=== PATIENT | female | born 1990 | race Caucasian/White ===

== ENCOUNTER 2016-09-10 15:39 | Emergency (ER) | payer OTHER ==
[2016-09-10 16:34] LABS: HCG,QUALITATIVE URINE NEGATIVE
[2016-09-10 16:37] LABS: SPECIFIC GRAVITY 1.015 (1.001-1.030); URINE BILIRUBIN NEGATIVE (NEGATIVE); URINE BLOOD 3+ (NEGATIVE); URINE GLUCOSE (UA) NEGATIVE (NEGATIVE); URINE LEUKOCYTE ESTERASE NEGATIVE (NEGATIVE); URINE NITRITE NEGATIVE (NEGATIVE); URINE PROTEIN NEGATIVE (NEGATIVE); URINE UROBILINOGEN NORMAL (0-1 mg/dl)
[2016-09-10 16:38] LABS: URINE APPEARANCE CLEAR; URINE COLOR YELLOW
[2016-09-10 16:46] LABS: URINE BACTERIA FEW; URINE EPITHELIAL CELLS MODERATE /hpf; URINE RBC 40-50 /hpf; URINE WBC 0-1 /hpf
== END 2016-09-10 17:06 | disposition home or self-care (01) ==
LOC: ED 15:39
DX: N93.9 Abnormal uterine and vaginal bleeding, unspecified (principal); F17.210 Nicotine dependence, cigarettes, uncomplicated